=== PATIENT | female | born 1950 | race African-American/Black ===

== ENCOUNTER 2017-11-22 10:59 | Emergency (ER) | payer MEDICARE, OTHER ==
[~2017-11-22] VITALS: Ht 154.9 cm; Wt 80.3 kg
--- NOTE | 2017-11-22 13:02 | Diagnostic Imaging Report ---
History: Headaches Comparison studies: None Technique: Axial images were obtained from the skull base to the vertex. Coronal and sagittal reconstructions obtained from the axial data. Dose modulation, iterative reconstruction, and/or weight based adjustment of the mA/kV was utilized to reduce the radiation dose to as low as reasonably achievable. Findings: Scalp/skull: No abnormalities. No fractures, blastic or lytic lesions. Extra-axial spaces: No masses. No fluid collections. Brain sulci: Appropriate for age. Ventricles: Normal in size and configuration. No hydrocephalus. Parenchyma: No abnormal densities. No masses, hemorrhage, acute or chronic cortical vascular insults. Sellar/suprasellar region: Empty sella configuration Craniocervical junction: Patent foramen magnum. No Chiari one malformation. Atherosclerotic calcifications of the carotid siphons IMPRESSION: No acute abnormalities . Signed by: DR Pineda Collazo M.D. on 11/22/2017 12:59 PM
[2017-11-22] MEDS ORDERED: LIPITOR20 MG PO (13:20)
[2017-11-22] MEDS ORDERED: PLAVIX75 MG PO (13:20)
[2017-11-22] MEDS ORDERED: ATENOLOL50 MG PO (13:20)
[2017-11-22] MEDS ORDERED: HYZAAR 50-12.51 EACH (13:20)
[2017-11-22] MEDS ORDERED: ASPIR 8181 MG PO (13:20)
[2017-11-22] MEDS ORDERED: OMEPRAZOLE40 MG PO (13:20)
== END 2017-11-22 13:46 | disposition home or self-care (01) ==
LOC: FSED 10:59
DX: F43.9 Reaction to severe stress, unspecified (principal)
CPT/HCPCS: 70450; 99284

== ENCOUNTER 2018-08-17 15:14 | Emergency (ER) | payer MEDICARE, OTHER ==
[~2018-08-17] VITALS: Ht 154.9 cm; Wt 78.5 kg
[~2018-08-17 15:14] MED LIST: ASPIR 8181 MG PO; ATENOLOL50 MG PO; HYZAAR 50-12.51 EACH; LIPITOR20 MG PO; OMEPRAZOLE40 MG PO; PLAVIX75 MG PO
--- OUTSIDE RECORDS SUMMARY | 2018-08-17 15:18 | XMS REPORT ---
Author Author Jean Rider Organization [employer] Address Unknown Phone Unavailable Care Team Providers Care Transcript Evaluator Name Role Phone Jean Rider CP Unavailable Allergies No Known Allergies Problems Problem Type Condition Code Onset Dates Condition Status Problem GERD (gastroesophageal reflux disease) K21.9 Active Problem HTN (hypertension) I10 Active Problem BMI 33.0-33.9,adult Z68.33 Active Problem Obesity (BMI 30.0-34.9) E66.9 Active Problem BMI 34.0-34.9,adult Z68.34 Active Problem Prediabetes R73.09 Active Problem HLD (hyperlipidemia) E78.5 Active Problem Coronary artery disease involving [place] coronary artery of [place] heart, angina presence unspecified I25.10 Active Problem Microhematuria R31.2 Active Medications No Known Medications Results No Known Results Summary Purpose eClinicalWorks Submission
--- OUTSIDE RECORDS SUMMARY | 2018-08-17 15:18 | XMS REPORT | Summary of Care ---
Author Author [facility] Organization [facility] Address Unknown Phone Unavailable Encounter HQ Mariah(BONNY) [id number] Date(s): 01/05/15 - 01/05/15 [facility] [address] [place] [address]- Discharge Disposition: Home Attending Physician: Alisha Reddy DO Referring Physician: Alisha Reddy DO Vital Signs No data available for this section Problem List Condition Effective Dates Status Health Status Informant Abdominal Active pain(Confirmed) CAD (coronary artery Resolved disease)(Confirmed) Coronary artery Active disease(Confirmed) HTN - Active Hypertension(Confirm ed) HTN - Active Hypertension(Confirm ed) Hyperlipidemia(Confi Active rmed) Hyperlipidemia(Confi Resolved rmed) Nausea(Confirmed) Active Allergies, Adverse Reactions, Alerts Substance Reaction Severity Status Floxin Active Latex Active Macrodantin Active penicillins Active Shellfish Active Medications No data available for this section Results No data available for this section Immunizations No data available for this section Procedures No data available for this section Social History No data available for this section Assessment and Plan No data available for this section
--- OUTSIDE RECORDS SUMMARY | 2018-08-17 15:18 | XMS REPORT | Summary of Care ---
Author Author [facility] Organization [facility] Address Unknown Phone Unavailable Encounter HQ Micahr_zaid(FIN) [id number] Date(s): 03/26/17 - 03/26/17 [facility] [address] [place] [address]- [phone] Encounter Diagnosis Encounter for screening mammogram for malignant neoplasm of breast (Final) - 03/27/17 Discharge Disposition: Home or Self Care Attending Physician: Alisha Reddy DO Referring Physician: [...] Adverse Reactions, Alerts Substance Reaction Severity Status Shellfish Active penicillins Active Macrodantin Active Floxin Active Latex Active Medications No data available for this section Results No data available for this section Immunizations No data available for this section Procedures No data available for this section Social History No data available for this section Assessment and Plan No data available for this section
--- OUTSIDE RECORDS SUMMARY | 2018-08-17 15:18 | XMS REPORT | Summary of Care ---
Author Organization Unknown Address Unknown Phone Unavailable Encounter HQ Mariah(BONNY) [id number] Date(s): 09/30/13 - 10/01/13 [facility] [address] [place], [place] [id number] [place] [address] Discharge Diagnosis: Acute diverticulitis Discharge Disposition: Home Physician Attending: Tiana Liz DO Reason for Visit DR KRISS ABD PAIN Vital Signs Most recent to 1 2 oldest [Reference Range]: Height 154.94 cm (09/30/13 5:53 PM) Temperature Oral 98.1 DegF 98.5 DegF [96.4-99.1 DegF] (10/01/13 2:34 AM) (09/30/13 5:53 PM) Systolic Blood 164 mmHg Pressure [90-140 *HI* mmHg] (09/30/13 5:53 PM) Diastolic Blood 76 mmHg Pressure [60-90 (09/30/13 5:53 PM) mmHg] Respiratory Rate 66 BRMIN [14-20 BRMIN] *HI* (09/30/13 5:53 PM) Peripheral Pulse 18 bpm Rate [60-100 bpm] *LOW* (09/30/13 5:53 PM) Weight 80 kg (09/30/13 5:53 PM) Body Mass Index 33.32 m2 (09/30/13 5:53 PM) Problem List Condition Effective Dates Status Health Status Informant Abdominal Active pain(Confirmed) CAD (coronary artery Resolved disease)(Confirmed) Coronary artery Active disease(Confirmed) HTN - Active Hypertension(Confirm ed) HTN - Active Hypertension(Confirm ed) Hyperlipidemia(Confi Active rmed) Hyperlipidemia(Confi Resolved rmed) Nausea(Confirmed) Active Allergies, Adverse Reactions, Alerts Substance Reaction Severity Status Floxin Active Latex Active Macrodantin Active penicillins Active Shellfish Active Medications Benadryl 25 mg, 0.5 mL, Route: IVP, Drug form: INJ, ONCE, Dosing Weight 80, kg, Priority: STAT, Start date: 09/30/13 21:40:00, Stop date: 09/30/13 21:40:00 Notes: (Same as: Benadryl) Start Date: 09/30/13 Stop Date: 09/30/13 Status: Completed Cipro 500 mg, Route: PO, ONCE, Dosing Weight 80, kg, Priority: STAT, Start date: 10/01 2:04:00, Stop date: 10/01/13 2:04:00 Start Date: 10/01/13 Stop Date: 10/01/13 Status: Completed Flagyl 500 mg, Route: PO, ONCE, Dosing Weight 80, kg, Priority: STAT, Start date: 10/01 2:06:00, Stop date: 10/01/13 2:06:00 Start Date: 10/01/13 Stop Date: 10/01/13 Status: Completed Solu-MEDROL 125 mg, 2 mL, Route: IVP, Drug form: INJ, ONCE, Dosing Weight 80, kg, Priority: STAT, Start date: 09/30/13 21:39:00, Stop date: 09/30/13 21:39:00 Notes: (Same as:Solu-MEDROL, A-Methapred) Start Date: 09/30/13 Stop Date: 09/30/13 Status: Completed Results ELECTROLYTES Most recent to 1 oldest [Reference Range]: Sodium Lvl [135-145 136 mEq/L mEq/L] (09/30/13 6:20 PM) Potassium Lvl 5.8 mEq/L [3.5-5.1 mEq/L] *HI* (09/30/13 6:20 PM) Chloride Lvl [95-109 103 mEq/L mEq/L] (09/30/13 6:20 PM) CO2 [24-32 mEq/L] 25 mEq/L (09/30/13 6:20 PM) AGAP [10.0-20.0 13.8 mEq/L mEq/L] (09/30/13 6:20 PM) CHEM PANEL Most recent to 1 oldest [Reference Range]: Creatinine Lvl 0.8 mg/dL [0.5-1.4 mg/dL] (09/30/13 6:20 PM) eGFR 90 mL/min/1.73m2 1 *NA* (09/30/13 6:20 PM) BUN [7-22 mg/dL] 11 mg/dL (09/30/13 6:20 PM) B/C Ratio [6-25] 14 (09/30/13 6:20 PM) Glucose Lvl [70-99 78 mg/dL 2 mg/dL] (09/30/13 6:20 PM) Total Protein 8.2 g/dL [6.4-8.4 g/dL] (09/30/13 6:20 PM) Albumin Lvl [3.5-5.0 3.7 g/dL g/dL] (09/30/13 6:20 PM) Globulin [2.0-4.0 4.5 g/dL g/dL] *HI* (09/30/13 6:20 PM) A/G Ratio [0.7-1.6] 0.8 (09/30/13 6:20 PM) Calcium Lvl 9.4 mg/dL [8.5-10.5 mg/dL] (09/30/13 6:20 PM) ALT [0-65 unit/L] 20 unit/L (09/30/13 6:20 PM) AST [0-37 unit/L] 33 unit/L (09/30/13 6:20 PM) Alk Phos [39-136 88 unit/L unit/L] (09/30/13 6:20 PM) Bili Total [0.2-1.3 1.5 mg/dL mg/dL] *HI* (09/30/13 6:20 PM) 1Result Comment: The eGFR is calculated using the CKD-EPI formula. In most young, healthy individuals the eGFR will be >90 mL/min/1.73m2. The eGFR declines with age. An eGFR of 60-89 may be normal in some populations, particularly the elderly, for whom the CKD-EPI formula has not been extensively validated. Use of the eGFR is not recommended in the following populations: Individuals with unstable creatinine concentrations, including patients and those with serious co-morbid conditions. Patients with extremes in muscle mass or diet. The data above are obtained from the National Kidney Disease Education Program ( NKDEP) which additionally recommends that when the eGFR is used in patients with extremes of body mass index for purposes of drug dosing, the eGFR should be mul tiplied by the estimated BMI. 2Interpretive Data: Adult reference range values reflect the clinical guidelines of the [place] [employer]. URINE AND STOOL Most recent to 1 oldest [Reference Range]: UA Turbidity [Clear] Clear (09/30/13 9:30 PM) UA Color [Yellow] Yellow *NA* (09/30/13 9:30 PM) UA pH [5.0-8.0] 5.0 (09/30/13 9:30 PM) UA Spec Grav 1.016 [<=1.030] (09/30/13 9:30 PM) UA Glucose [Negative Negative mg/dL mg/dL] *NA* (09/30/13 9:30 PM) UA Blood [Negative] Small *ABN* (09/30/13 9:30 PM) UA Ketones [Negative Negative mg/dL mg/dL] *NA* (09/30/13 9:30 PM) UA Protein [Negative Negative mg/dL mg/dL] (09/30/13 9:30 PM) UA Urobilinogen <=1.0 mg/dL [0.1-1.0 mg/dL] *NA* (09/30/13 9:30 PM) UA Bili [Negative] Negative *NA* (09/30/13 9:30 PM) UA Leuk Est Negative [Negative] (09/30/13 9:30 PM) UA Nitrite Negative [Negative] (09/30/13 9:30 PM) UA WBC [0-5 /HPF] 3 /HPF (09/30/13 9:30 PM) UA RBC [0-2 /HPF] 4 /HPF *HI* (09/30/13 9:30 PM) UA Bacteria [None Occasional /HPF Seen /HPF] *NA* (09/30/13 9:30 PM) UA Sq Epi [Few /LPF] Occasional /LPF *NA* (09/30/13 9:30 PM) UA Hyal Cast [0-2 28 /LPF /LPF] *HI* (09/30/13 9:30 PM) UA Mucus [None Seen Few /LPF /LPF] *NA* (09/30/13 9:30 PM) HEMATOLOGY Most recent to 1 oldest [Reference Range]: WBC [3.7-10.4 K/CMM] 14.6 K/CMM *HI* (09/30/13 6:20 PM) RBC [4.20-5.40 4.62 M/CMM M/CMM] (09/30/13 6:20 PM) Hgb [12.0-16.0 g/dL] 12.2 g/dL (09/30/13 6:20 PM) Hct [36.0-48.0 %] 36.6 % (09/30/13 6:20 PM) MCV [81.0-99.0 fL] 79.2 fL *LOW* (09/30/13 6:20 PM) MCH [27.0-31.0 pg] 26.4 pg *LOW* (09/30/13 6:20 PM) MCHC [32.0-36.0 33.3 g/dL g/dL] (09/30/13 6:20 PM) RDW [11.5-14.5 %] 14.6 % *HI* (09/30/13 6:20 PM) Platelet [133-450 244 K/CMM K/CMM] (09/30/13 6:20 PM) MPV [7.4-10.4 fL] 8.7 fL (09/30/13 6:20 PM) Segs [45.0-75.0 %] 87.4 % *HI* (09/30/13 6:20 PM) Lymphocytes 9.9 % [20.0-40.0 %] *LOW* (09/30/13 6:20 PM) Monocytes [2.0-12.0 1.8 % %] *LOW* (09/30/13 6:20 PM) Eosinophils [0.0-4.0 0.5 % %] (09/30/13 6:20 PM) Basophils [0.0-1.0 0.4 % %] (09/30/13 6:20 PM) Segs-Bands # 12.7 K/CMM [1.5-8.1 K/CMM] *HI* (09/30/13 6:20 PM) Lymphocytes # 1.4 K/CMM [1.0-5.5 K/CMM] (09/30/13 6:20 PM) Monocytes # [0.0-0.8 0.3 K/CMM K/CMM] (09/30/13 6:20 PM) Eosinophils # 0.1 K/CMM [0.0-0.5 K/CMM] (09/30/13 6:20 PM) Basophils # [0.0-0.2 0.1 K/CMM K/CMM] (09/30/13 6:20 PM) Medications Administered During Your Visit No data available for this section Immunizations No data available for this section
--- OUTSIDE RECORDS SUMMARY | 2018-08-17 15:18 | XMS REPORT ---
Author Author Priti Rea [facility] eClinicalWorks Address Unknown Phone Unavailable Care Team Providers Care Mopper Name Role Phone Priti Rea Unavailable Allergies, Adverse Reactions, Alerts Substance Reaction Event Type Latex Gloves Info Not Available Drug Allergy Codeine Sulfate Info Not Available Drug Allergy shrimp Info Not Available Non Drug Allergy Encounters Encounter Location Date Unknown [facility] October 01, 2013 intense stomach pain [facility] September 30, 2013 Follow-Up [facility] October 05, 2013 3 MONTH FU [facility] Oct 30, 2013 follow up on labs [facility] Feb 03, 2013 Unknown [facility] Apr 28, 2013 6 month f/u [facility] July 31, 2013 NV- FLU SHOT [facility] Dec 10, 2013 SORE THROAT [facility] Mar 21, 2015 Unknown [facility] Feb 28, 2015 Unknown [facility] Nov 17, 2013 Unknown [facility] Nov 23, 2013 2 week follow up [facility] Feb 03, 2015 Test results [facility] Feb 04, 2015 WWE/FBW [facility] Jan 20, 2015 Results [facility] Jan 21, 2015 Back pain. [facility] May 18, 2015 FOLLOW UP ON ABNORMAL RESULTS [facility] Feb 16, 2014 Refill [facility] Nov 08, 2014 WWE fbw [facility] Jan 29, 2014 Unknown [facility] Feb 14, 2014 follow up [facility] Feb 25, 2015 Problems Problem Type Condition ICD-9 Code Onset Dates Condition Status Assessment Prediabetes R73.09 Active Problem Prediabetes R73.09 Active Assessment 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 Active Problem Postmenopausal Z78.0 Active Problem Leukocytosis D72.829 Active Problem Coronary artery disease involving [place] coronary artery of [place] heart, angina presence unspecified I25.10 Active Problem HLD (hyperlipidemia) E78.5 Active Problem GERD (gastroesophageal reflux disease) K21.9 Active Problem Microhematuria R31.2 Active Problem HTN (hypertension) I10 Active Assessment BMI 33.0-33.9,adult Z68.33 Active Assessment Shoulder pain M25.519 Active Assessment HTN (hypertension) I10 Active Assessment Obesity E66.9 Active Assessment HLD (hyperlipidemia) E78.5 Active Medications Medication Code System Code Instructions Start Date End Date [facility] D[facility] [address] 81 MG Orally Once a day Active 1 tablet Atenolol [facility] [address]-50 50 mg Orally Once a day Active 1 tablet Aciphex [facility] [address]-33 20 mg Orally Once a day Active 1 tablet Hyzaar [facility] [address]-18 50-12.5 MG Orally Once a day Active 1 tablet Atorvastatin Calcium [facility] [address]-16 40 mg Orally Once a day July 31, 2013 Active 1 tablet Plavix [facility] [address]-87 75 mg Orally Once a day Active 1 tablet Lidoderm [facility] [address]-15 5 % Externally Once a day May 18, 2015 July 17, 2015 Active 1 patch to intact skin remove after 12 hours Social History Social History Element Qualifiers Date Reported Fall Risk: . none in the past year May 18, 2015 Flu Vaccine: . 2014May 18, 2015 Last Colonoscopy: . 2012, 1 polyp May 18, 2015 Ethnicity . Status , Is afghan your primary language? Yes May 18, 2015 Depression Screening: . 07/2013May 18, 2015 children . 2 May 18, 2015 Tobacco Use: . Are you a: never smoker May 18, 2015 Use of recreational / street drugs? . Answer: No May 18, 2015 Marital Status: . Prabhakar Jerel May 18, 2015 Do you drink alcohol? . Status: No May 18, 2015 Occupation: . [employer] May 18, 2015 Vital Signs Date/Time: May 18, 2015 Weight 178 lbs Height 61 in Cardiac Monitoring Heart Rate 68 /min Blood Pressure Diastolic 76 mm Hg Blood Pressure Systolic 136 mm Hg Results Spine cervical 4 views- Xray Summary Purpose eClinicalWorks Submission
--- OUTSIDE RECORDS SUMMARY | 2018-08-17 15:18 | XMS REPORT | Summary of Care ---
Author Author [facility] Organization [facility] Address Unknown Phone Unavailable Encounter HQ Sima_zaid(FIN) [id number] Date(s): 03/26/17 - 03/26/17 [facility] [address] [place] [address]- Encounter Diagnosis Encounter for screening mammogram for malignant neoplasm of breast (Final) - Discharge Disposition: Home or Self Care Attending [...]
--- OUTSIDE RECORDS SUMMARY | 2018-08-17 15:18 | XMS REPORT | Summary of Care ---
Author Author [facility] Address Unknown Phone Unavailable Encounter HQ Encntr_zaid(FIN) [id number] Date(s): 04/18/15 - 05/17/15 [facility] Discharge Disposition: Home Attending Physician: Alisha Reddy DO Vital Signs No [...]
--- OUTSIDE RECORDS SUMMARY | 2018-08-17 15:18 | XMS REPORT ---
Author Author Jean Rider Organization [employer] Address Unknown Phone Unavailable Care Team Providers Care Online Merchant Name Role Phone Jean Rider CP Unavailable Allergies No Known Allergies Problems Problem Type Condition Code Onset Dates Condition Status Assessment Stress at home F43.9 Active Problem Coronary artery disease involving [place] coronary artery of [place] heart, angina presence unspecified I25.10 Active Problem Microhematuria R31.2 Active Problem Stress at home F43.9 Active Problem GERD (gastroesophageal reflux disease) K21.9 Active Problem HTN (hypertension) I10 Active Problem Prediabetes R73.09 Active Problem HLD (hyperlipidemia) E78.5 Active Medications Medication Code System Code Instructions Start Date End Date Status Dosage HydrOXYzine HCl [facility] 21012217989 25 MG Orally every 8 hrs Active 1 tablet as needed Results No Known Results Summary Purpose eClinicalWorks Submission
--- OUTSIDE RECORDS SUMMARY | 2018-08-17 15:18 | XMS REPORT ---
Author Author Jean Rider Organization [employer] Address Unknown Phone Unavailable Care Team Providers Care Director Student Union Name Role Phone Jean Rider CP Unavailable Allergies, Adverse Reactions, Alerts Substance Reaction Event Type Latex Gloves Info Not Available Drug Allergy Codeine Sulfate Info Not Available Drug Allergy shrimp Info Not Available Non Drug Allergy Problems Problem Type Condition Code Onset Dates Condition Status Assessment Stress at home F43.9 Active Assessment Prediabetes R73.09 Active Assessment HTN (hypertension) I10 Active Problem Coronary artery disease involving [place] coronary artery of [place] heart, angina presence unspecified I25.10 Active Problem Microhematuria R31.2 Active Problem Stress at home F43.9 Active Problem GERD (gastroesophageal reflux disease) K21.9 Active Problem HTN (hypertension) I10 Active Problem Prediabetes R73.09 Active Problem HLD (hyperlipidemia) E78.5 Active Assessment Fatigue, unspecified type R53.83 Active Assessment Obesity (BMI 30.0-34.9) E66.9 Active Assessment BMI 33.0-33.9,adult Z68.33 Active Assessment Coronary artery disease involving [place] coronary artery of [place] heart, angina presence unspecified I25.10 Active Assessment Microhematuria R31.2 Active Medications Medication Code System Code Instructions Start Date End Date Status Dosage HydrOXYzine HCl [facility] 29842992183 25 MG Orally every 8 hrs Active 1 tablet as needed Aspirin [facility] 33302903692 81 MG Orally Once a day Active 1 tablet Omeprazole ND 81045031837 40 MG Orally Once a day Active 1 capsule Atorvastatin Calcium ND 55409593643 20 MG Orally Once a day Active 1 tablet Atorvastatin Calcium [facility] 80329405957 40 mg Orally Once a day July 31, 2013 Active 1 tablet Plavix ND 01169749211 75 mg Orally Once a day Active 1 tablet Atenolol ND 74509820024 50 mg Orally Once a day Active 1 tablet Hyzaar [facility] 16994647606 50-12.5 MG Orally Once a day Active 1 tablet Vital Signs Date/Time: Nov 26, 2017 BMI 33.63 Index Weight 178 lbs Height 61 in Cardiac Monitoring Heart Rate 73 /min Blood Pressure Diastolic 60 mm Hg Blood Pressure Systolic 100 mm Hg Results No Known Results Summary Purpose eClinicalWorks Submission
--- OUTSIDE RECORDS SUMMARY | 2018-08-17 15:18 | XMS REPORT | Continuity of Care Document ---
Author Author [facility] Interface Address Unknown Phone Unavailable Problems Problem Status Onset Date Classification Date Reported Comments Source ROUTINE Active 05/01/2018 [facility] DX: R10.30/R11.0/R14.3/Z87.891/I10/E66.9 Active 02/25/2018 [facility] UNK Active 11/09/2016 [facility] SCREENING Active 01/23/2016 [facility] M47.9 (NOT MARGARET,PT HAS A STENT,WAS IN Active 02/09/2015 [facility] SCREENING MAMMO Active 12/30/2014 [facility] Discharge Diagnosis: Acute diverticulitis 10/01/2013 10/04/[address] [facility] [address] MONTERROSO, ABD PAIN Active 09/30/2013 [facility] Encounter for screening mammogram for malignant neoplasm of breast [facility] Abdominal pain Active Problem 05/09/2018 [facility] [place] CAD (<span ID="[id number]">Confirmed</span>) Resolved Problem 05/09/2018 [facility] [place] Coronary artery disease Active Problem 05/09/2018 [facility] [place] HTN - Hypertension Active Problem 05/09/2018 [facility] [place] Hyperlipidemia Active Problem 05/09/2018 [facility] [place] Nausea Active Problem 05/09/2018 [facility] [place] Final: Encounter for screening mammogram for malignant neoplasm of breast 02/24/2016 [facility] Stress at home Active Problem 07/29/2018 [facility] Coronary artery disease involving red cliff coronary artery of red cliff heart, angina presence unspecified Active Diagnosis 07/29/2018 [facility] Microhematuria Active Problem 07/29/2018 [facility] GERD Active Problem 07/29/2018 [facility] HTN Active Diagnosis 07/29/2018 [facility] Prediabetes Active Problem 07/29/2018 [facility] HLD Active Diagnosis 07/29/2018 [facility] BMI 33.0-33.9,adult Active Diagnosis 12/06/2017 [facility] Obesity Active Diagnosis 12/06/2017 [facility] BMI 34.0-34.9,adult Active Problem 08/08/2017 [facility] Fatigue, unspecified type Active Diagnosis 12/06/2017 [facility] Routine general medical examination at a health care facility Active Diagnosis 02/22/2017 [facility] Asymptomatic menopausal state Active Diagnosis 02/22/2017 [facility] Encntr for general adult medical exam w/o abnormal findings Active Diagnosis 02/01/2018 [facility] Postmenopausal Active Problem 01/27/2016 [facility] Leukocytosis Active Problem 01/27/2016 [facility] Lumbar disc herniation with radiculopathy Active Diagnosis 05/21/2015 [facility] Shoulder pain Active Diagnosis 05/21/2015 [facility] Needs flu shot Active Diagnosis 01/27/2016 [facility] Special screening for malignant neoplasms, colon Active Diagnosis 01/27/2016 [facility] Abdominal pain, unspecified location Active Diagnosis 03/28/2016 [facility] Acute cystitis with hematuria Active Diagnosis 03/28/2016 [facility] ENCNTR SCREEN MAMMOGRAM FOR MALIGNANT NE Active [facility] SPONDYLOSIS, UNSPECIFIED Active [facility] LUMBAR Active [facility] LUMBAR DISC HERNIATION WITH RADICULOPATH Active [facility] ANGINA PECTORIS, UNSPECIFIED Active [facility] LBP Active [facility] LBP Active [facility] LOWER ABDOMINAL PAIN, UNSPECIFIED Active [facility] NAUSEA Active [facility] FLATULENCE Active [facility] Medications Medication Details Route Status Patient Instructions Ordering Provider Order Date Source Cipro 1 tablet Orally Active 250 MG Orally twice a day (bid) Teres[place] 03/26/2016 [facility] Ambien 1 tablet at bedtime as needed Orally No Longer Active 10 mg Orally Once a day Pawel Gagnon 06/27/2015 [facility] Lidoderm 1 patch to intact skin remove after 12 hours Externally Active 5 % Externally Once a day [place] 05/18/2015 [facility] Flagyl 500 mg, Route: PO, ONCE, Dosing Weight 80, kg, Priority: STAT, Start date: 10/01/13 2:06:00, Stop date: 10/01/13 2:06:00 Inactive 10/01/2013 [facility] Cipro 500 mg, Route: PO, ONCE, Dosing Weight 80, kg, Priority: STAT, Start date: 10/01/13 2:04:00, Stop date: 10/01/13 2:04:00 Inactive 10/01/2013 [facility] Benadryl 25 mg, 0.5 mL, Route: IVP, Drug form: INJ, ONCE, Dosing Weight 80, kg, Priority: STAT, Start date: 09/30/13 21:40:00, Stop date: 09/30/13 21:40:00Notes: (Same as: Benadryl) Inactive 10/01/2013 [facility] Solu-Medrol 125 mg, 2 mL, Route: IVP, Drug form: INJ, ONCE, Dosing Weight 80, kg, Priority: STAT, Start date: 09/30/13 21:39:00, Stop date: 09/30/13 21:39:00Notes: (Same as:Solu-MEDROL, A-Methapred) Inactive 10/01/2013 [facility] Atorvastatin Calcium 1 tablet Orally Active 40 mg Orally Once a day [place] 07/31/2013 [facility] Atorvastatin Calcium 1 tablet Orally Active 40 MG Orally Once a day [place] 07/31/2013 [facility] Atorvastatin Calcium 1 tablet Orally Active 40 mg Orally Once a day [place] 07/31/2013 [facility] HydrOXYzine HCl 1 tablet as needed Orally Active 25 MG Orally every 8 hrs [facility] Plavix 1 tablet Orally Active 75 mg Orally Once a day [facility] Aspirin 1 tablet Orally Active 81 MG Orally Once a day [facility] Omeprazole 1 capsule Orally Active 40 mg Orally Once a day [facility] Atorvastatin Calcium 1 tablet Orally Active 20 mg Orally Once a day [facility] Atenolol 1 tablet Orally Active 50 mg Orally Once a day [facility] Hyzaar 1 tablet Orally Active 50-12.5 MG Orally Once a day Ranjit [facility] Aspirin 1 tablet Orally Active 81 MG Orally Once a day [facility] Atenolol 1 tablet Orally Active 50 MG Orally Once a day [facility] Aciphex 1 tablet Orally No Longer Active 20 mg Orally Once a day [facility]awel Gagnon [facility] Hyzaar 1 tablet Orally Active 50-12.5 MG Orally Once a day [facility] Plavix 1 tablet Orally Active 75 MG Orally Once a day [facility] Aspirin (Aspir 81) 81 Mg Tablet. Daily Active [facility] Atenolol 50 Mg Tablet Daily Active [facility] Atorvastatin Calcium (Lipitor) 20 Mg Tablet Daily Active [facility] Clopidogrel Bisulfate (Plavix) 75 Mg Tablet Daily Active [facility] Losartan/Hydrochlorothiazide (Hyzaar 50-12.5 Tablet) 1 Each Tablet Active [facility] Omeprazole 40 Mg Capsule. Daily Active [facility] Allergies, Adverse Reactions, Alerts Substance Category Reaction Severity Reaction type Status Date Reported Comments Source clavulanic acid Unknown Allergy to Substance Active 11/22/2017 [facility] Latex Gloves Adverse Reaction Info Not Available Adverse Reaction Active 01/31/2018 [facility] Codeine Sulfate Adverse Reaction Info Not Available Adverse Reaction Active 01/31/2018 [facility] shrimp Adverse Reaction Info Not Available Adverse Reaction Active 01/31/2018 [facility] Shellfish Assertion Drug allergy Active [place] penicillins Assertion Drug allergy Active [place] Macrodantin Assertion Drug allergy Active [place] Floxin Assertion Drug allergy Active [facility] Latex Assertion Drug allergy Active [facility] Immunizations Immunization Date Given Site Status Last Updated Comments Source FLUZONE HD 65 & [place] [id number] 01/23/2016 completed [facility] Results Order Name Results Value Reference Range Date Interpretation Comments Source Breast Mammo Scrn LANCE w cilve incl CAD MA Breast Mammo Scrn LANCE w clive incl CAD MA BILATERAL DIGITAL SCREENING MAMMOGRAM 3D/2D WITH CAD: 05/06/2018 CLINICAL: /Routine. Current study was evaluated with a Computer Aided Detection (CAD) system. COMPARISON:Comparison is made to exams dated: 03/26/2017 mammogram, 02/21/2016 mammogram, 01/05/2015 mammogram, 12/23/2013 mammogram, 12/23/2012 mammogram, and 08/04/2011 mammogram - [facility]. TECHNIQUE: Digital Breast Tomosynthesis was performed and utilized for Interpretation. Snap [employer]itness[employer] Version 1.3 was utilized for computer aided detection. FINDINGS: There are scattered fibroglandular densities in both breasts. Benign appearing densities are noted in both breasts. There is a benign mass and an intramammary node in the left breast. There also are benign vascular calcifications and calcifications in both breasts. No significant masses, calcifications, or other findings are seen in either breast. There has been no significant interval change. IMPRESSION: BENIGN RECOMMENDATION:There is no mammographic evidence of malignancy. A 1 year screening mammogram is recommended.(05/07/2019) This exam was interpreted at [id number] for [facility]. Rita masterson/penrad:05/06/2018 11:26:03 Fell Cutter(s): Nasima Abraham [facility] letter sent: BI-RADS 1/2 Mammogram BI-RADS: 2 Benign 05/06/2018 - - Read by: Rita Reza MD Dictated Date/time: 05/06/18 11:26 Electronically Signed by: Rita Reza MD 05/06/18 11:26 FINAL REPORT [facility] Abdomen/Pelvis w/wo IV contrast CT Abdomen/Pelvis w/wo IV contrast CT EXAM: CT ABDOMEN PELVIS WITH AND WITHOUT CONTRAST. CLINICAL INDICATION: 67 years old Female with lower abdominal pain for one week, history of diverticulitis. TECHNIQUE: GI CONTRAST: 900 cc of standard 5% Omnipaque-300 contrast mixture. Axial pre-contrast images were obtained from the lower chest to the symphysis pubis. IV CONTRAST: 100 cc of Omnipaque-300 Axial post-contrast images were obtained from the lower chest to the symphysis pubis. Coronal and sagittal reconstruction images were performed. CT imaging performed at this location utilizes radiation dose optimization techniques which include one or more of the following: -Automated exposure control -Adjustment of the mA and/or kV according to patient size -Use of iterative reconstruction technique CT Radiation Dose DLP 1445 mGy-cm COMPARISON: CT abdomen/pelvis 09/30/2013 FINDINGS: LOWER CHEST: The visualized lung bases are clear. Normal size of the heart is noted. Coronary artery calcifications. SOLID ORGANS: No focal hepatic lesion or intrahepatic biliary ductal dilatation is seen. Prior cholecystectomy. The spleen, pancreas, and adrenal glands are normal in appearance. Both kidneys demonstrate normal corticomedullary phase of enhancement. No renal/ureteral calculus, hydronephrosis, or mass is apparent. Nonenhancing 10 mm hyperdense right renal exophytic focus likely representing a hemorrhagic/proteinaceous cyst. 3.2 cm left upper pole cyst. 1.6 cm left lower pole cyst. A few additional subcentimeter bilateral renal hypodensities are noted which are too small to characterize, though statistically likely represent cysts. BOWEL: Small hiatal hernia. The small bowel is normal in caliber without wall thickening. A normal appendix is identified. Colonic diverticulosis. Short segment of mild wall thickening with adjacent fat stranding noted in the sigmoid colon consistent with acute diverticulitis. No evidence of adjacent abscess. PERITONEUM: No free intraperitoneal fluid or air. RETROPERITONEUM: Normal caliber of the abdominal aorta is noted. No lymphadenopathy is seen. PELVIS: The visualized urinary bladder wall is normal thickness. Uterus is absent. MUSCULOSKELETAL: No acute osseous abnormality is seen. No destructive lytic or blastic osseous lesion is noted. Degenerative changes noted in the spine, most prominently at L4-L5. IMPRESSION: 1. Findings consistent with acute sigmoid diverticulitis. 2. Small hiatal hernia. 3. Bilateral renal cysts. Additional subcentimeter bilateral renal hypodensities are noted which are too small to characterize, though statistically likely also represent cysts. SL: [id number] 02/25/2018 - - Read by: Aubrey Trevino MD Dictated Date/time: 02/26/18 15:19 Electronically Signed by: Aubrey Trevino MD 02/26/18 15:31 FINAL REPORT [facility] Breast Mammo Scrn LANCE incl CAD CT Breast Mammo Scrn LANCE incl CAD MA BILATERAL DIGITAL SCREENING MAMMOGRAM WITH CAD: 03/26/2017 CLINICAL: /Routine. Current study was evaluated with a Computer Aided Detection (CAD) system. COMPARISON:Comparison is made to exams dated: 02/21/2016 mammogram, 01/05/2015 mammogram, 12/23/2013 mammogram, 12/23/2012 mammogram, 08/04/2011 mammogram, and 07/22/2010 mammogram - [facility]. TECHNIQUE: Mammographic views were obtained using digital acquisition. Snap [employer]itness[employer] Version 1.3 was utilized for computer aided detection. FINDINGS: There are scattered fibroglandular densities in both breasts. There is a benign density in the right breast. There also is a benign intramammary node in the left breast. Additionally, there are benign vascular calcifications and calcifications in both breasts. No significant masses, calcifications, or other findings are seen in either breast. There has been no significant interval change. IMPRESSION: BENIGN RECOMMENDATION:There is no mammographic evidence of malignancy. A 1 year screening mammogram is recommended.(03/27/2018) This exam was interpreted at [id number] for [facility]. Rita masterson/penrad:03/27/2017 07:58:05 Fell Cutter(s): Cari Hebert, [facility] letter sent: BI-RADS 1/2 Mammogram BI-RADS: 2 Benign 03/26/2017 - - Read by: Rita Reza MD Dictated Date/time: 03/27/17 07:58 Electronically Signed by: Rita Reza MD 03/27/17 07:58 FINAL REPORT [facility] Digital Mammo Screening [facility] Digital Mammo Screening [facility] - DIGITAL MAMMO SCREENING [facility] [place] BILATERAL DIGITAL SCREENING MAMMOGRAM WITH CAD: 02/21/2016 CLINICAL: Other Screening Mammogram. Current study was evaluated with a Computer Aided Detection (CAD) system. Comparison is made to exams dated: 01/05/2015 mammogram, 12/23/2013 mammogram, 12/23/2012 mammogram, 08/04/2011 mammogram, 07/22/2010 mammogram and 07/20/2009 mammogram - [facility]. There are scattered fibroglandular densities in both breasts. There are benign vascular calcifications and calcifications in both breasts. There also is a benign density in the right breast. Additionally there is a benign intramammary node in the left breast. No significant masses, calcifications, or other findings are seen in either breast. There has been no significant interval change. IMPRESSION: BENIGN There is no mammographic evidence of malignancy. A 1 year screening mammogram is recommended. Rita masterson/manuela:02/21/2016 14:13:40 Fell Cutter: Moon Pineda, [facility] This exam was dictated and interpreted by [id number] for [facility]. letter sent: Normal exam Mammogram BI-RADS: 2 Benign 02/21/2016 - - Read by: Rita Reza MD Dictated Date/time: 02/21/16 14:13 Electronically Signed by: Rita Reza MD 02/21/16 14:13 FINAL REPORT [facility] Spine lumbar wo contrast MRI Spine lumbar wo contrast MRI MRI LUMBAR SPINE WITHOUT CONTRAST: CLINICAL HISTORY: Lower lumbar pain extending into both legs. Previous disc herniation. Spondylosis. TECHNIQUE AND FINDINGS: A multiplanar MRI of the lumbar spine was performed without intravenous gadolinium injection on a 1.5 tomas magnet. Multiple imaging sequences were obtained including sagittal T1, sagittal T2 FSE, sagittal T2 FSE fat-suppressed, axial T1, and axial T2 FSE. COMPARISON: No prior similar examinations are available for comparison. Five lumbar type vertebral bodies are assumed for purposes of this dictation with the conus medullaris termination at T12-L1. Loss of normal lordosis may be secondary to positioning or muscle spasm. Mild spondylosis is seen throughout the majority of the lumbar spine with moderate to severe spondylosis at L4-L5 manifest by a narrowed, desiccated, and bulging intervertebral disc with endplate degenerative change and marginal osteophyte formation. Mild to moderate facet arthrosis and ligamentum flavum appear to greatest in the lower lumbar spine. No acute fracture, dislocation, or focal osseous lesion is appreciated. An S1 hemangioma is seen on the right. A couple of small fluid signal intensity left renal lesions are seen suspicious for cysts measuring up to 2.5 cm at maximum. The incompletely visualized liver appears hypointense on T2 images relative to the spleen suggesting possible hemochromatosis. T12 - L1: No significant disc protrusion, spinal canal narrowing or neural foraminal narrowing is appreciated. L1 - L2: No significant disc protrusion, spinal canal narrowing or neural foraminal narrowing is appreciated. L2 - L3: Minimal diffuse disc bulge causing minimal anterior thecal sac compression. No significant spinal canal narrowing or neural foraminal narrowing. L3 - L4: Mild diffuse disc bulge causing mild anterior thecal sac compression without significant central spinal canal narrowing. Minimal right neural foraminal narrowing. No significant left neural foraminal narrowing. L4 - L5: Mild to moderate diffuse disc bulge coupled with moderate facet arthrosis and ligamentum flavum hypertrophy. Mild spinal canal narrowing. Moderate bilateral neural foraminal narrowing L5 - S1: Mild diffuse disc bulge with mild broad-based right lateral asymmetry and focal asymmetry the right paracentral region. Partial effacement of the anterior aspect of the thecal sac is seen on the right likely with mild mass effect upon the right S1 nerve root. Severe right neural foraminal narrowing with mass effect upon the exiting right L5 nerve root. Moderate left neural foraminal narrowing. IMPRESSION: 1. Predominately mild lumbar spondylosis except for L4-L5 where moderate to severe spondylosis is present. Mild to moderate facet arthrosis and ligamentum flavum hypertrophy greatest in the lower lumbar spine. 2. Mild to moderate diffuse disc bulge at L4-L5 coupled with moderate facet arthrosis and ligament flavum hypertrophy causing mild spinal canal narrowing associated with moderate bilateral neural foraminal narrowing. 3. Mild diffuse disc bulge with broad-based right lateral asymmetry of focal asymmetry in the right paracentral region. Partial effacement of the anterior aspect of the thecal sac is seen on the right likely with mild mass effect upon the right S1 nerve root. Severe right neural foraminal narrowing is present with mass effect upon the exiting right L5 nerve root. Moderate left neural foraminal narrowing. SL:17 02/17/2015 - - Read by: Alonso Vega MD Dictated Date/time: 02/18/15 07:41 Electronically Signed by: Alonso Vega MD 02/18/15 08:20 FINAL REPORT [facility] Digital Mammo Screening [facility] Digital Mammo Screening [facility] DIGITAL MAMMO SCREENING LANCE CT BILATERAL DIGITAL SCREENING MAMMOGRAM WITH CAD: 01/05/2015 CLINICAL: Other Screening Mammogram. Current study was evaluated with a Computer Aided Detection (CAD) system. Comparison is made to exams dated: 12/23/2013 mammogram, 12/23/2012 mammogram, 08/04/2011 mammogram, 07/22/2010 mammogram, 07/20/2009 mammogram and 06/25/2009 mammogram - [facility]. There are scattered fibroglandular densities in both breasts. There are benign vascular calcifications and calcifications in both breasts. There also is a benign density in the right breast. Additionally there is a benign intramammary node in the left breast. No significant masses, calcifications, or other findings are seen in either breast. There has been no significant interval change. IMPRESSION: BENIGN There is no mammographic evidence of malignancy. A 1 year screening mammogram is recommended. Rita montoyat/penrad:01/06/2015 08:48:58 Fell Cutter: Moon Pineda, [facility] This exam was dictated and interpreted by [id number] for [facility]. letter sent: Normal exam Mammogram BI-RADS: 2 Benign 01/05/2015 - - Read by: Rita Reza MD Dictated Date/time: 01/06/15 08:48 Electronically Signed by: Rita Reza MD 01/06/15 08:48 FINAL REPORT [facility] Digital Mammo Screening [facility] Digital Mammo Screening [facility] - DIGITAL MAMMO SCREENING [place] BILATERAL DIGITAL SCREENING MAMMOGRAM WITH CAD: 12/23/2013 CLINICAL: Routine. Current study was evaluated with a Computer Aided Detection (CAD) system. Comparison is made to exams dated: 12/23/2012 mammogram, 08/04/2011 mammogram, 07/22/2010 mammogram, 07/20/2009 mammogram and 06/25/2009 mammogram - [facility]. There are scattered fibroglandular densities in both breasts. There are benign vascular calcifications and calcifications in both breasts. There also is a benign density in the right breast. Additionally there is a benign intramammary node in the left breast. No significant masses, calcifications, or other findings are seen in either breast. There has been no significant interval change. IMPRESSION: BENIGN There is no mammographic evidence of malignancy. A screening mammogram in one year is recommended. Rita masterson/penrad:12/24/2013 08:09:26 Fell Cutter: Fiordaliza Neville, [facility] This exam was dictated and interpreted by [id number] for [facility]. letter sent: Normal exam Mammogram BI-RADS: 2 Benign 12/23/2013 - - Read by: Rita Reza MD Dictated Date/time: 12/24/13 08:09 Electronically Signed by: Rita Reza MD 12/24/13 08:09 FINAL REPORT [facility] URINE AND STOOL UA Mucus Few /LPF None Seen /LPF 10/01/2013 [facility] URINE AND STOOL UA Hyal Cast 28 /LPF 0 - 2 10/01/2013 [facility] URINE AND STOOL UA Urobilinogen <=1.0 mg/dL 0.1 - 1.0 10/01/2013 [facility] URINE AND STOOL UA Sq Epi Occasional /LPF Few /LPF 10/01/2013 [facility] URINE AND STOOL UA WBC 3 /HPF 0 - 5 10/01/2013 [facility] URINE AND STOOL UA RBC 4 /HPF 0 - 2 10/01/2013 [facility] URINE AND STOOL UA Bacteria Occasional /HPF None Seen /HPF 10/01/2013 [facility] URINE AND STOOL UA Leuk Est Negative (09/30/13 9:30 PM) Negative 10/01/2013 [facility] URINE AND STOOL UA pH 5.0 5.0 - 8.0 10/01/2013 [facility] URINE AND STOOL UA Protein Negative mg/dL Negative mg/dL 10/01/2013 [facility] URINE AND STOOL UA Nitrite Negative (09/30/13 9:30 PM) Negative 10/01/2013 [facility] URINE AND STOOL UA Blood Small *ABN* (09/30/13 9:30 PM) Negative 10/01/2013 [facility] URINE AND STOOL UA Glucose Negative mg/dL Negative mg/dL 10/01/2013 [facility] URINE AND STOOL UA Ketones Negative mg/dL Negative mg/dL 10/01/2013 [facility] URINE AND STOOL UA Bili Negative *NA* (09/30/13 9:30 PM) Negative 10/01/2013 [facility] URINE AND STOOL UA Turbidity Clear (09/30/13 9:30 PM) Clear 10/01/2013 [facility] URINE AND STOOL UA Spec Grav 1.016 <=1.030 10/01/2013 [facility] URINE AND STOOL UA Color Yellow *NA* (09/30/13 9:30 PM) Yellow 10/01/2013 [facility] CHEM PANEL eGFR 90 mL/min/1.73m2 09/30/2013 1Result Comment: The eGFR is calculated using [...] from the National Kidney Disease Education Program (NKDEP) which additionally recommends that when the eGFR is used in patients with extremes of body mass index for purposes of drug dosing, the eGFR should be multiplied by the estimated BMI. [facility] CHEM PANEL A/G Ratio 0.8 0.7 - 1.6 09/30/2013 [facility] CHEM PANEL B/C Ratio 14 6 - 25 09/30/2013 [facility] CHEM PANEL Globulin 4.5 g/dL 2.0 - 4.0 09/30/2013 [facility] CHEM PANEL AGAP 13.8 meq/L 10.0 - 20.0 09/30/2013 [facility] CHEM PANEL Total Protein 8.2 g/dL 6.4 - 8.4 09/30/2013 [facility] CHEM PANEL Albumin Lvl 3.7 g/dL 3.5 - 5.0 09/30/2013 [facility] CHEM PANEL Calcium Lvl 9.4 mg/dL 8.5 - 10.5 09/30/2013 [facility] CHEM PANEL CO2 25 meq/L 24 - 32 09/30/2013 [facility] CHEM PANEL Chloride Lvl 103 meq/L 95 - 109 09/30/2013 [facility] CHEM PANEL Bili Total 1.5 mg/dL 0.2 - 1.3 09/30/2013 [facility] CHEM PANEL Alk Phos 88 unit/L 39 - 136 09/30/2013 [facility] CHEM PANEL AST 33 unit/L 0 - 37 09/30/2013 [facility] CHEM PANEL ALT 20 unit/L 0 - 65 09/30/2013 [facility] CHEM PANEL Potassium Lvl 5.8 meq/L 3.5 - 5.1 09/30/2013 [facility] CHEM PANEL Sodium Lvl 136 meq/L 135 - 145 09/30/2013 [facility] CHEM PANEL BUN 11 mg/dL 7 - 22 09/30/2013 [facility] CHEM PANEL Creatinine Lvl 0.8 mg/dL 0.5 - 1.4 09/30/2013 [facility] CHEM PANEL Glucose Lvl 78 mg/dL 70 - 99 09/30/2013 2Interpretive Data: Adult reference range values reflect the clinical guidelines of the [place] [employer]. [facility] HEMATOLOGY Basophils # 0.1 K/CMM 0.0 - 0.2 09/30/2013 [facility] HEMATOLOGY Lymphocytes 9.9 % 20.0 - 40.0 09/30/2013 [facility] HEMATOLOGY Segs 87.4 % 45.0 - 75.0 09/30/2013 [facility] HEMATOLOGY Basophils 0.4 % 0.0 - 1.0 09/30/2013 [facility] HEMATOLOGY Segs-Bands # 12.7 K/CMM 1.5 - 8.1 09/30/2013 [facility] Monocytes 1.8 % 2.0 - 12.0 09/30/2013 [facility] HEMATOLOGY Eosinophils 0.5 % 0.0 - 4.0 09/30/2013 [facility] HEMATOLOGY Eosinophils # 0.1 K/CMM 0.0 - 0.5 09/30/2013 [facility] Lymphocytes # 1.4 K/CMM 1.0 - 5.5 09/30/2013 [facility] Monocytes # 0.3 K/CMM 0.0 - 0.8 09/30/2013 [facility] MCHC 33.3 g/dL 32.0 - 36.0 09/30/2013 [facility] Platelet 244 K/CMM 133 - 450 09/30/2013 [facility] RDW 14.6 % 11.5 - 14.5 09/30/2013 [facility] MPV 8.7 fL 7.4 - 10.4 09/30/2013 [facility] WBC 14.6 K/CMM 3.7 - 10.4 09/30/2013 [facility] RBC 4.62 M/CMM 4.20 - 5.40 09/30/2013 [facility] MCH 26.4 pg 27.0 - 31.0 09/30/2013 [facility] MCV 79.2 fL 81.0 - 99.0 09/30/2013 [facility] Hct 36.6 % 36.0 - 48.0 09/30/2013 [facility] Hgb 12.2 g/dL 12.0 - 16.0 09/30/2013 [facility] Vital Signs Vital Sign Value Date Comments Source Weight 179 01/31/2018 [facility] Height 61 01/31/2018 [facility] Heart Rate 67 01/31/2018 [facility] Diastolic (mm Hg) 82 01/31/2018 [facility] Systolic (mm Hg) 142 01/31/2018 [facility] Weight 178 11/26/2017 [facility] Height 61 11/26/2017 [facility] Heart Rate 73 11/26/2017 [facility] Diastolic (mm Hg) 60 11/26/2017 [facility] Systolic (mm Hg) 100 11/26/2017 [facility] Weight 178 02/18/2017 [facility] Height 61 02/18/2017 [facility] Heart Rate 71 02/18/2017 [facility] Diastolic (mm Hg) 66 02/18/2017 [facility] Systolic (mm Hg) 122 02/18/2017 [facility] Weight 180 03/26/2016 [facility] Height 61 03/26/2016 [facility] Diastolic (mm Hg) 80 03/26/2016 [facility] Systolic (mm Hg) 126 03/26/2016 [facility] Weight 176 01/23/2016 [facility] Height 61 01/23/2016 [facility] Heart Rate 68 01/23/2016 [facility] Diastolic (mm Hg) 75 01/23/2016 [facility] Systolic (mm Hg) 135 01/23/2016 [facility] Weight 178 05/18/2015 [facility] Height 61 05/18/2015 [facility] Heart Rate 68 05/18/2015 [facility] Diastolic (mm Hg) 76 05/18/2015 [facility] Systolic (mm Hg) 136 05/18/2015 [facility] Temperature Oral (F) 98.1 F 10/01/2013 [facility] Height 154.94 cm 09/30/2013 [facility] Weight 80 09/30/2013 [facility] BMI Calculated 33.32 09/30/2013 [facility] Systolic (mm Hg) 164 09/30/2013 [facility] Diastolic (mm Hg) 76 09/30/2013 [facility] Respitory Rate 66 09/30/2013 [facility] Temperature Oral (F) 98.5 F 09/30/2013 [facility] Heart Rate 18 09/30/2013 [facility] Encounters Location Location Details Encounter Type Encounter Number Reason For Visit Attending Provider ADM Date DC Date Status Source [facility] follow up on labs [id number] 02/03/2013 02/03/2013 [facility] follow up on labs [id number] 02/03/2013 02/03/2013 [facility] follow up on labs [id number] 02/03/2013 02/03/2013 [facility] follow up on labs [id number] 02/03/2013 02/03/2013 [facility] Unknown [id number] 04/28/2013 04/28/2013 [facility] Unknown [id number] 04/28/2013 04/28/2013 [facility] Unknown [id number] 04/28/2013 04/28/2013 [facility] Unknown [id number] 04/28/2013 04/28/2013 [facility] 6 month f/u [id number] 07/31/2013 07/31/2013 [facility] 6 month f/u [id number] 07/31/2013 07/31/2013 [facility] 6 month f/u [id number] 07/31/2013 07/31/2013 [facility] 6 month f/u [id number] 07/31/2013 07/31/2013 [facility] intense stomach pain [id number] 09/30/2013 09/30/2013 [facility] intense stomach pain [id number] 09/30/2013 09/30/2013 [facility] intense stomach pain [id number] 09/30/2013 09/30/2013 [facility] intense stomach pain [id number] 09/30/2013 09/30/2013 [facility] [id number] Cat Liz 09/30/2013 10/01/2013 [facility] Unknown [id number] 10/01/2013 10/01/2013 [facility] Unknown [id number] 10/01/2013 10/01/2013 [facility] Unknown [id number] 10/01/2013 10/01/2013 [facility] Unknown [id number] 10/01/2013 10/01/2013 [facility] Follow-Up [id number] 10/05/2013 10/05/2013 [facility] Follow-Up [id number] 10/05/2013 10/05/2013 [facility] Follow-Up [id number] 10/05/2013 10/05/2013 [facility] Follow-Up [id number] 10/05/2013 10/05/2013 [facility] 3 MONTH FU [id number] 10/30/2013 10/30/2013 [facility] 3 MONTH FU [id number] 10/30/2013 10/30/2013 [facility] 3 MONTH FU [id number] 10/30/2013 10/30/2013 [facility] 3 MONTH FU [id number] 10/30/2013 10/30/2013 [facility] Unknown [id number] 11/17/2013 11/17/2013 [facility] Unknown [id number] 11/17/2013 11/17/2013 [facility] Unknown [id number] 11/17/2013 11/17/2013 [facility] Unknown [id number] 11/17/2013 11/17/2013 [facility] Unknown [id number] 11/23/2013 11/23/2013 [facility] Unknown [id number] 11/23/2013 11/23/2013 [facility] Unknown [id number] 11/23/2013 11/23/2013 [facility] Unknown [id number] 11/23/2013 11/23/2013 [facility] [place]- FLU [place]OT [id number] 12/10/2013 12/10/2013 [facility] [place]- [place] [id number] 12/10/2013 12/10/2013 [facility] [place] [id number] 12/10/2013 12/10/2013 [facility] [place] [id number] 12/10/2013 12/10/2013 [facility] Outpatient [id number] Alisha Reddy 12/23/2013 12/24/2013 [facility] [id number] 01/29/2014 01/29/2014 [facility] [id number] 01/29/2014 01/29/2014 [facility] [id number] 01/29/2014 01/29/2014 [facility] [id number] 01/29/2014 01/29/2014 [facility] Unknown [id number] 02/15/2014 02/15/2014 [facility] Unknown [id number] 02/15/2014 02/15/2014 [facility] Unknown [id number] 02/15/2014 02/15/2014 [facility] Unknown [id number] 02/15/2014 02/15/2014 [facility] FOLLOW UP ON ABNORMAL RESULTS [id number] 02/16/2014 02/16/2014 [facility] FOLLOW UP ON ABNORMAL RESULTS [id number] 02/16/2014 02/16/2014 [facility] FOLLOW UP ON ABNORMAL RESULTS [id number] 02/16/2014 02/16/2014 [facility] FOLLOW UP ON ABNORMAL RESULTS [id number] 02/16/2014 02/16/2014 [facility] Refill [id number] 11/08/2014 11/08/2014 [facility] Refill [id number] 11/08/2014 11/08/2014 [facility] Refill [id number] 11/08/2014 11/08/2014 [facility] Refill [id number] 11/08/2014 11/08/2014 [facility] Outpatient [id number] Alisha [facility] 01/05/2015 01/06/2015 [facility] E/KAMRAN [id number] 01/20/2015 01/20/2015 [facility] E/BRIT [id number] 01/20/2015 01/20/2015 [facility] E/[facility] [id number] 01/20/2015 01/20/2015 [facility] E/BRIT [id number] 01/20/2015 01/20/2015 [facility] Results [id number] 01/21/2015 01/21/2015 [facility] Results [id number] 01/21/2015 01/21/2015 [facility] Results [id number] 01/21/2015 01/21/2015 [facility] Results [id number] 01/21/2015 01/21/2015 [facility] 2 week follow up [id number] 02/03/2015 02/03/2015 [facility] 2 week follow up [id number] 02/03/2015 02/03/2015 [facility] 2 week follow up [id number] 02/03/2015 02/03/2015 [facility] 2 week follow up [id number] 02/03/2015 02/03/2015 [facility] Test results [id number] 02/04/2015 02/04/2015 [facility] Test results [id number] 02/04/2015 02/04/2015 [facility] Test results [id number] 02/04/2015 02/04/2015 [facility] Test results [id number] 02/04/2015 02/04/2015 [facility] Outpatient [id number] Alisha Reddy 02/17/2015 02/18/2015 [facility] follow up [id number] 02/25/2015 02/25/2015 [facility] follow up [id number] 02/25/2015 02/25/2015 [facility] follow up [id number] 02/25/2015 02/25/2015 [facility] follow up [id number] 02/25/2015 02/25/2015 [facility] Unknown [id number] 02/28/2015 02/28/2015 [facility] Unknown [id number] 02/28/2015 02/28/2015 [facility] Unknown [id number] 02/28/2015 02/28/2015 [facility] Unknown [id number] 02/28/2015 02/28/2015 [facility] OP Therapy Patients [id number] Alisha Reddy 03/15/2015 04/14/2015 [facility] SORE THROAT [id number] 03/21/2015 03/21/2015 [facility] SORE THROAT [id number] 03/21/2015 03/21/2015 [facility] SORE THROAT [id number] 03/21/2015 03/21/2015 [facility] SORE THROAT [id number] 03/21/2015 03/21/2015 [facility] OP Therapy Patients [id number] Alisha Reddy 04/18/2015 05/18/2015 [facility] Back pain. [id number] 05/18/2015 05/18/2015 [facility] Back pain. [id number] 05/18/2015 05/18/2015 [facility] Back pain. [id number] 05/18/2015 05/18/2015 [facility] Back pain. [id number] 05/18/2015 05/18/2015 [facility] Needs call back from Medical Staff [id number] 06/27/2015 06/27/2015 [facility] Needs call back from Medical Staff [id number] 06/27/2015 06/27/2015 [facility] Needs call back from Medical Staff [id number] 06/27/2015 06/27/2015 [facility] WWE [id number] 01/23/2016 01/23/2016 [facility] WWE [id number] 01/23/2016 01/23/2016 [facility] Outpatient [id number] Alisha Barry 02/21/2016 02/22/2016 [facility] ab pain/UTI [id number] 03/26/2016 03/26/2016 [facility] Outpatient [id number] Alisha Reddy 03/26/2017 03/27/2017 [facility] Departed Emergency Room [id number] LIVIA MERCEDES MD 11/22/2017 11/22/2017 [facility] Outpatient [id number] Alisha Brary 05/06/2018 05/07/2018 [facility] Procedures Procedure Code Date Perfomer Comments Source
--- OUTSIDE RECORDS SUMMARY | 2018-08-17 15:18 | XMS REPORT ---
Author Author Alisha Mendes [facility] eClinicalWorks Address Unknown Phone Unavailable Care Team Providers Care Bale Coverer Name Role Phone Alisha Mendes CP Unavailable Allergies No Known Allergies Problems Problem Type Condition Code Onset Dates Condition Status Assessment Coronary artery disease involving [place] coronary artery of [place] heart, angina presence unspecified I25.10 Active Problem GERD (gastroesophageal reflux disease) K21.9 Active Problem HTN (hypertension) I10 Active Problem BMI 33.0-33.9,adult Z68.33 Active Problem Obesity (BMI 30.0-34.9) E66.9 Active Problem BMI 34.0-34.9,adult Z68.34 Active Problem Prediabetes R73.09 Active Problem HLD (hyperlipidemia) E78.5 Active Problem Coronary artery disease involving [place] coronary artery of [place] heart, angina presence unspecified I25.10 Active Problem Microhematuria R31.2 Active Medications Medication Code System Code Instructions Start Date End Date Status Dosage Plavix [facility] 49751427571 75 mg Orally Once a day Active 1 tablet Results No Known Results Summary Purpose eClinicalWorks Submission
--- OUTSIDE RECORDS SUMMARY | 2018-08-17 15:18 | XMS REPORT ---
Author Author Gisselle Church Organization eClinicalWorks Address Unknown Phone Unavailable Care Team Providers Care Shipwright Supervisor Name Role Phone Gisselle Church CP Unavailable Allergies No Known Allergies Problems Problem Type Condition Code Onset Dates Condition Status Assessment Coronary artery disease involving [place] coronary artery of [place] heart, angina presence unspecified I25.10 Active Assessment HTN (hypertension) I10 Active Assessment HLD (hyperlipidemia) E78.5 Active Problem Coronary artery disease involving [place] coronary artery of [place] heart, angina presence unspecified I25.10 Active Problem Microhematuria R31.2 Active Problem Stress at home F43.9 Active Problem GERD (gastroesophageal reflux disease) K21.9 Active Problem HTN (hypertension) I10 Active Problem Prediabetes R73.09 Active Problem HLD (hyperlipidemia) E78.5 Active Medications Medication Code System Code Instructions Start Date End Date Status Dosage Atorvastatin Calcium [facility] 61011983468 40 mg Orally Once a day July 31, 2013 Active 1 tablet Hyzaar [facility] 91193939598 50-12.5 MG Orally Once a day Active 1 tablet Plavix [facility] 27885259982 75 mg Orally Once a day Active 1 tablet Atenolol [facility] 59996150074 50 mg Orally Once a day Active 1 tablet Results No Known Results Summary Purpose eClinicalWorks Submission
--- OUTSIDE RECORDS SUMMARY | 2018-08-17 15:18 | XMS REPORT ---
Author Author Gisselle Church [facility] eClinicalWorks Address Unknown Phone Unavailable Care Team Providers Care Beverage Host Name Role Phone Gisselle Church CP Unavailable Allergies, Adverse Reactions, Alerts Substance Reaction Event Type Latex Gloves Info Not Available Drug Allergy Codeine Sulfate Info Not Available Drug Allergy shrimp Info Not Available Non Drug Allergy Problems Problem Type Condition Code Onset Dates Condition Status Assessment HTN (hypertension) I10 Active Assessment Encntr for general adult medical exam w/o abnormal findings Z00.00 Active Problem Coronary artery disease involving [place] coronary artery of [place] heart, angina presence unspecified I25.10 Active Problem Microhematuria R31.2 Active Problem Stress at home F43.9 Active Problem GERD (gastroesophageal reflux disease) K21.9 Active Problem HTN (hypertension) I10 Active Problem Prediabetes R73.09 Active Problem HLD (hyperlipidemia) E78.5 Active Assessment Coronary artery disease involving [place] coronary artery of [place] heart, angina presence unspecified I25.10 Active Assessment Prediabetes R73.09 Active Assessment GERD (gastroesophageal reflux disease) K21.9 Active Assessment Microhematuria R31.2 Active Assessment HLD (hyperlipidemia) E78.5 Active Medications Medication Code System Code Instructions Start Date End Date Status Dosage Aspirin [facility] 88504194058 81 MG Orally Once a day Active 1 tablet Hyzaar [facility] 16547158871 50-12.5 MG Orally Once a day Active 1 tablet HydrOXYzine HCl [facility] 18647817354 25 MG Orally every 8 hrs Active 1 tablet as needed Atorvastatin Calcium [facility] 33268600310 20 mg Orally Once a day Active 1 tablet Plavix ND 90515670171 75 mg Orally Once a day Active 1 tablet Atorvastatin Calcium [facility] 77370097032 40 mg Orally Once a day July 31, 2013 Active 1 tablet Atenolol ND 30305821979 50 mg Orally Once a day Active 1 tablet Omeprazole ND 19916303660 40 mg Orally Once a day Active 1 capsule Vital Signs Date/Time: Jan 31, 2018 BMI 33.82 Index Weight 179 lbs Height 61 in Cardiac Monitoring Heart Rate 67 /min Blood Pressure Diastolic 82 mm Hg Blood Pressure Systolic 142 mm Hg Results No Known Results Summary Purpose eClinicalWorks Submission
--- OUTSIDE RECORDS SUMMARY | 2018-08-17 15:18 | XMS REPORT | Summary of Care ---
Author Author [facility] Organization [facility] Address Unknown Phone Unavailable Encounter HQ Sima_zaid(FIN) [id number] Date(s): 05/06/18 - 05/06/18 [facility] [address] [place] [address]- Encounter Diagnosis Encounter for screening mammogram for malignant neoplasm of breast (Final) - Discharge Disposition: Home or Self Care Attending Physician: Alisha Reddy DO Referring Physician: Alisha Reddy DO Vital Signs No data available for this section Problem List Condition Effective Dates Status Health Status Informant Abdominal Active pain(Confirmed) CAD (coronary artery Resolved disease)(Confirmed) Coronary artery Active disease(Confirmed) HTN - Active Hypertension(Confirm ed) Hyperlipidemia(Confi Active [...]
--- OUTSIDE RECORDS SUMMARY | 2018-08-17 15:18 | XMS REPORT | Summary of Care ---
Author Author [facility] Organization [facility] Address Unknown Phone Unavailable Encounter HQ Mariah(BONNY) [id number] Date(s): 02/21/16 - 02/21/16 [facility] [address] [place] [address]- [phone] Final: Encounter for screening mammogram for malignant neoplasm of breast Discharge Disposition: Home or Self Care Attending [...]
--- OUTSIDE RECORDS SUMMARY | 2018-08-17 15:18 | XMS REPORT | Summary of Care ---
Author Author [facility] Address Unknown Phone Unavailable Encounter HQ Encntr_zaid(FIN) [id number] Date(s): 03/15/15 - 04/13/15 [facility] Discharge Disposition: Home Attending Physician: Alisha [...]
--- OUTSIDE RECORDS SUMMARY | 2018-08-17 15:18 | XMS REPORT | Summary of Care ---
Author Author [facility] Organization [facility] Address Unknown Phone Unavailable Encounter HQ Sima_zaid(BONNY) [id number] Date(s): 02/17/15 - 02/17/15 [facility] [address] [place] [address]- [phone] Discharge Disposition: Home Attending Physician: Alisha Reddy [...]
--- OUTSIDE RECORDS SUMMARY | 2018-08-17 15:18 | XMS REPORT ---
Author Author Alisha Mendes [facility] eClinicalWorks Address Unknown Phone Unavailable Care Team Providers Care Production Proofreader Name Role Phone Alisha Mendes CP Unavailable Allergies, Adverse Reactions, Alerts Substance Reaction Event Type Latex Gloves Info Not Available Drug Allergy Codeine Sulfate Info Not Available Drug Allergy shrimp Info Not Available Non Drug Allergy Problems Problem Type Condition Code Onset Dates Condition Status Assessment Routine general medical examination at a health care facility Z00.00 Active Problem GERD (gastroesophageal reflux disease) K21.9 Active Problem HTN (hypertension) I10 Active Problem BMI 33.0-33.9,adult Z68.33 Active Problem Obesity (BMI 30.0-34.9) E66.9 Active Problem BMI 34.0-34.9,adult Z68.34 Active Problem Prediabetes R73.09 Active Problem HLD (hyperlipidemia) E78.5 Active Problem Coronary artery disease involving [place] coronary artery of [place] heart, angina presence unspecified I25.10 Active Problem Microhematuria R31.2 Active Assessment Coronary artery disease involving [place] coronary artery of [place] heart, angina presence unspecified I25.10 Active Assessment HLD (hyperlipidemia) E78.5 Active Assessment HTN (hypertension) I10 Active Assessment Prediabetes R73.09 Active Assessment Asymptomatic menopausal state Z78.0 Active Assessment GERD (gastroesophageal reflux disease) K21.9 Active Assessment Screening for malignant neoplasm of breast Z12.39 Active Medications Medication Code System Code Instructions Start Date End Date Status Dosage Hyzaar [facility] 04286485338 50-12.5 MG Orally Once a day Active 1 tablet Atenolol ND 03655511324 50 mg Orally Once a day Active 1 tablet Atorvastatin Calcium ND 61996442690 40 mg Orally Once a day July 31, 2013 Active 1 tablet Aspirin [facility] 21727264886 81 MG Orally Once a day Active 1 tablet Plavix ND 90996453826 75 MG Orally Once a day Active 1 tablet Vital Signs Date/Time: Feb 18, 2017 BMI 33.63 Index Weight 178 lbs Height 61 in Cardiac Monitoring Heart Rate 71 /min Blood Pressure Diastolic 66 mm Hg Blood Pressure Systolic 122 mm Hg Results No Known Results Summary Purpose eClinicalWorks Submission
--- OUTSIDE RECORDS SUMMARY | 2018-08-17 15:18 | XMS REPORT | Summary of Care ---
Author Organization Unknown Address Unknown Phone Unavailable Encounter HQ Encntr_alitim(FIN) [id number] Date(s): 12/23/13 - 12/23/13 [facility] [address] [place], [place] [id number] [place] [address] Discharge Disposition: Home Physician Attending: Alisha Reddy DO Physician_Referring: Alisha Reddy DO Reason for Visit SCREENING Problem List Condition Effective Dates Status Health [...] Medications No data available for this section Medications Administered During Your Visit No data available for this section Immunizations No data available for this section
--- OUTSIDE RECORDS SUMMARY | 2018-08-17 15:18 | XMS REPORT ---
Author Author Alisha Mendes [facility] eClinicalWorks Address Unknown Phone Unavailable Care Team Providers Care Fish Bait Picker Name Role Phone Alisha Mendes Unavailable Encounters Encounter Location Date Unknown [facility] October 01, 2013 intense stomach pain [facility] September 30, 2013 Follow-Up [facility] October 05, 2013 3 MONTH FU [facility] Oct 30, 2013 follow up on labs [facility] Feb 03, 2013 Unknown [facility] Apr 28, 2013 6 month f/u [facility] July 31, 2013 [place]- FLU SHOT [facility] Dec 10, 2013 SORE THROAT [facility] Mar 21, 2015 Unknown [facility] Feb 28, 2015 Unknown [facility] Nov 17, 2013 Unknown [facility] Nov 23, 2013 2 week follow up [facility] Feb 03, 2015 Test results [facility] Feb 04, 2015 WWE/FBW [facility] Jan 20, 2015 Results [facility] Jan 21, 2015 Back pain. [facility] May 18, 2015 FOLLOW UP ON ABNORMAL RESULTS [facility] Feb 16, 2014 Needs call back from Medical Staff [facility] June 27, 2015 Refill [facility] Nov 08, 2014 WWE fbw [facility] Jan 29, 2014 Unknown [facility] Feb 14, 2014 follow up [facility] Feb 25, 2015 Problems Problem Type Condition ICD-9 Code Onset Dates Condition Status Problem Prediabetes R73.09 Active Problem Postmenopausal Z78.0 Active Problem Leukocytosis D72.829 Active Problem Coronary artery disease involving [place] coronary artery of [place] heart, angina presence unspecified I25.10 Active Problem HLD (hyperlipidemia) E78.5 Active Problem GERD (gastroesophageal reflux disease) K21.9 Active Problem Microhematuria R31.2 Active Problem HTN (hypertension) I10 Active Medications Medication Code System Code Instructions Start Date End Date Status Dosage Sandra LEACH [address]-66 10 mg Orally Once a day June 27, 2015 Active 1 tablet at bedtime as needed Social History Social History Element Qualifiers Date Reported Fall Risk: . none in the past year May 18, 2015 Flu Vaccine: . 2014May 18, 2015 Last Colonoscopy: . 2012, 1 polyp May 18, 2015 Ethnicity . Status , Is ukrainian your primary language? Yes May 18, 2015 Depression Screening: . 07/2013May 18, 2015 children . 2 May 18, 2015 Tobacco Use: . Are you a: never smoker May 18, 2015 Use of recreational / street drugs? . Answer: No May 18, 2015 Marital Status: . Prabhakar Beltrán May 18, 2015 Do you drink alcohol? . Status: No May 18, 2015 Occupation: . [employer] May 18, 2015 Summary Purpose eClinicalWorks Submission
--- OUTSIDE RECORDS SUMMARY | 2018-08-17 15:19 | XMS REPORT ---
Author Author Jean Rider Organization eClinicalWorks Address Unknown Phone Unavailable Care Team Providers Care Private Detective Name Role Phone Jean Rider CP Unavailable Allergies, Adverse Reactions, Alerts Substance Reaction Event Type Latex Gloves Info Not Available Drug Allergy Codeine Sulfate Info Not Available Drug Allergy shrimp Info Not Available Non Drug Allergy Encounters Encounter Location Date [place]- FLU SHOT [facility] Dec 10, 2013 2 week follow up [facility] Feb 03, 2015 Test results [facility] Feb 04, 2015 WWE/FBW [facility] Jan 20, 2015 Results [facility] Jan 21, 2015 FOLLOW UP ON ABNORMAL RESULTS [facility] Feb 16, 2014 Refill [facility] Nov 08, 2014 WWE fbw [facility] Jan 29, 2014 Unknown [facility] Feb 14, 2014 follow up [facility] Feb 25, 2015 Unknown [facility] October 01, 2013 intense stomach pain [facility] September 30, 2013 Follow-Up [facility] October 05, 2013 3 MONTH FU [facility] Oct 30, 2013 follow up on labs [facility] Feb 03, 2013 Unknown [facility] Apr 28, 2013 6 month f/u [facility] July 31, 2013 SORE THROAT [facility] Mar 21, 2015 Unknown [facility] Feb 28, 2015 Unknown [facility] Nov 17, 2013 Unknown [facility] Nov 23, 2013 Back pain. [facility] May 18, 2015 Needs call back from Medical Staff [facility] June 27, 2015 WWE [facility] Jan 23, 2016 ab pain/UTI [facility] Mar 26, 2016 Problems Problem Type Condition ICD-9 Code Onset Dates Condition Status Assessment Abdominal pain, unspecified location R10.9 Active Problem GERD (gastroesophageal reflux disease) K21.9 Active Problem Prediabetes R73.09 Active Problem BMI 33.0-33.9,adult Z68.33 Active Problem Obesity (BMI 30.0-34.9) E66.9 Active Problem BMI 34.0-34.9,adult Z68.34 Active Problem HTN (hypertension) I10 Active Problem HLD (hyperlipidemia) E78.5 Active Problem Coronary artery disease involving [place] coronary artery of [place] heart, angina presence unspecified I25.10 Active Problem Microhematuria R31.2 Active Assessment BMI 34.0-34.9,adult Z68.34 Active Assessment Coronary artery disease involving [place] coronary artery of [place] heart, angina presence unspecified I25.10 Active Assessment Acute cystitis with hematuria N30.01 Active Medications Medication Code System Code Instructions Start Date End Date Status Dosage Atenolol [facility] [address]-47 50 MG Orally Once a day Active 1 tablet Atorvastatin Calcium [facility] [address]-85 40 MG Orally Once a day July 31, 2013 Active 1 tablet Hyzaar [facility] [address]-68 50-12.5 MG Orally Once a day Active 1 tablet Aspirin [facility] [address] 81 MG Orally Once a day Active 1 tablet Plavix [facility] [address]-75 75 MG Orally Once a day Active 1 tablet Cipro [facility] [address]-86 250 MG Orally twice a day (bid) Mar 26, 2016 Mar 29, 2016 Active 1 tablet Social History Social History Element Qualifiers Date Reported Fall Risk: . none in the past year Mar 26, 2016 Last Colonoscopy: . 2012, 1 polyp Mar 26, 2016 Ethnicity . Status , Is kiswahili your primary language? Yes Mar 26, 2016 children . 2 Mar 26, 2016 Tobacco Use: . Are you a: never smoker Mar 26, 2016 Use of recreational / street drugs? . Answer: No Mar 26, 2016 Marital Status: . Prabhakar Jerel Mar 26, 2016 Do you drink alcohol? . Status: No Mar 26, 2016 Occupation: . RETIRED - Work Director Of [employer] Mar 26, 2016 Family history Qualifier Description Comment Date Reported Maternal Grandmother Comment not available Mar 26, 2016 Paternal Grandmother Comment not available Mar 26, 2016 Siblings Comment not available Mar 26, 2016 Maternal Grandfather Comment not available Mar 26, 2016 Children Comment not available Mar 26, 2016 Father heart disease, heart attack Mar 26, 2016 Paternal Grandfather Comment not available Mar 26, 2016 Mother hypertension Mar 26, 2016 Other: Comment not available Mar 26, 2016 Vital Signs Date/Time: Mar 26, 2016 Weight 180 lbs Height 61 in Blood Pressure Diastolic 80 mm Hg Blood Pressure Systolic 126 mm Hg Summary Purpose eClinicalWorks Submission
--- OUTSIDE RECORDS SUMMARY | 2018-08-17 15:19 | XMS REPORT ---
Author Author Alisha Mendes [facility] eClinicalWorks Address Unknown Phone Unavailable Care Team Providers Care Risk Specialist Name Role Phone Armas Alisha Gagnon CP Unavailable Allergies, Adverse Reactions, Alerts Substance Reaction Event Type Latex Gloves Info Not Available Drug Allergy Codeine Sulfate Info Not Available Drug Allergy shrimp Info Not Available Non Drug Allergy Encounters Encounter Location Date Unknown [facility] October 01, 2013 intense stomach pain [facility] September 30, 2013 Follow-Up [facility] October 05, 2013 3 MONTH FU [facility] Oct 30, 2013 follow up on labs [facility] Feb 03, 2013 Unknown [facility] Apr 28, 2013 6 month f/u [facility] July 31, 2013 NV- FLU SHOT [facility] Dec 10, 2013 SORE THROAT [facility] Mar 21, 2015 Unknown [facility] Feb 28, 2015 Unknown [facility] Nov 17, 2013 Unknown [facility] Nov 23, 2013 2 week follow up [facility] Feb 03, 2015 Test results [facility] Feb 04, 2015 WWE/FBW [facility] Jan 20, 2015 Results [facility] Jan 21, 2015 Back pain. [facility] May 18, 2015 FOLLOW UP ON ABNORMAL RESULTS [facility] Feb 16, 2014 Needs call back from Medical Staff [facility] June 27, 2015 Refill [facility] Nov 08, 2014 WWE [facility] Jan 23, 2016 WWE fbw [facility] Jan 29, 2014 Unknown [facility] Feb 14, 2014 follow up [facility] Feb 25, 2015 Problems Problem Type Condition ICD-9 Code Onset Dates Condition Status Problem Prediabetes R73.09 Active Problem HLD (hyperlipidemia) E78.5 Active Problem GERD (gastroesophageal reflux disease) K21.9 Active Problem Obesity (BMI 30.0-34.9) E66.9 Active Assessment Encounter for screening mammogram for malignant neoplasm of breast Z12.31 Active Problem Coronary artery disease involving [place] coronary artery of [place] heart, angina presence unspecified I25.10 Active Assessment Needs flu shot Z23 Active Assessment BMI 33.0-33.9,adult Z68.33 Active Problem BMI 33.0-33.9,adult Z68.33 Active Problem Microhematuria R31.2 Active Problem HTN (hypertension) I10 Active Problem Postmenopausal Z78.0 Active Problem Leukocytosis D72.829 Active Assessment Leukocytosis D72.829 Active Assessment Postmenopausal Z78.0 Active Assessment Special screening for malignant neoplasms, colon Z12.11 Active Assessment Microhematuria R31.2 Active Assessment GERD (gastroesophageal reflux disease) K21.9 Active Assessment HLD (hyperlipidemia) E78.5 Active Assessment Coronary artery disease involving [place] coronary artery of [place] heart, angina presence unspecified I25.10 Active Assessment HTN (hypertension) I10 Active Assessment Obesity (BMI 30.0-34.9) E66.9 Active Assessment Prediabetes R73.09 Active Assessment Encounter for routine gynecological examination Z01.419 Active Medications Medication Code System Code Instructions Start Date End Date Status Dosage Aspirin [facility] 13054-99501 81 MG Orally Once a day Active 1 tablet Atorvastatin Calcium [facility] [address]-97 40 MG Orally Once a day July 31, 2013 Active 1 tablet Atenolol [facility] [address]-27 50 MG Orally Once a day Active 1 tablet Ambien [facility] [address]-92 10 mg Orally Once a day June 27, 2015 Inactive 1 tablet at bedtime as needed Plavix [facility] [address]-22 75 MG Orally Once a day Active 1 tablet Aciphex [facility] [address]-15 20 mg Orally Once a day Inactive 1 tablet Hyzaar [facility] [address]-16 50-12.5 MG Orally Once a day Active 1 tablet Social History Social History Element Qualifiers Date Reported Flu Vaccine: . 2014Jan 23, 2016 Last Colonoscopy: . 2012, 1 polyp Jan 23, 2016 Ethnicity . Status , Is setswana your primary language? Yes Jan 23, 2016 Fall Risk: . none in the past year Jan 23, 2016 children . 2 Jan 23, 2016 Tobacco Use: . Are you a: never smoker Jan 23, 2016 Use of recreational / street drugs? . Answer: No Jan 23, 2016 Marital Status: . Prabhakar Beltrán Jan 23, 2016 Do you drink alcohol? . 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 [employer] Jan 23, 2016 Family history Qualifier Description Comment Date Reported Maternal Grandmother Comment not available Jan 23, 2016 Paternal Grandmother Comment not available Jan 23, 2016 Siblings Comment not available Jan 23, 2016 Maternal Grandfather Comment not available Jan 23, 2016 Children Comment not available Jan 23, 2016 Father heart disease, heart attack Jan 23, 2016 Paternal Grandfather Comment not available Jan 23, 2016 Mother hypertension Jan 23, 2016 Other: Comment not available Jan 23, 2016 Vital Signs Date/Time: Jan 23, 2016 Weight 176 lbs Height 61 in Cardiac Monitoring Heart Rate 68 /min Blood Pressure Diastolic 75 mm Hg Blood Pressure Systolic 135 mm Hg Results Hemoglobin A1c Immunizations Vaccine Administration Date FLUZONE HD [address] [place] [address] Jan 23, 2016 Summary Purpose eClinicalWorks Submission
--- OUTSIDE RECORDS SUMMARY | 2018-08-17 15:19 | XMS REPORT ---
Author [facility] Address Unknown Phone Unavailable Care Team Providers Care Senior Formulation Scientist Name Role Phone Dewayne MERCEDES Unavailable Unavailable Problems This patient has no known problems. Allergies, Adverse Reactions, Alerts This patient has no known allergies or adverse reactions. Medications This patient has no known medications. Results Test Description Test Time Test Comments Text Results Atomic Results Result Comments CT BRAIN WO-[facility] 2017-11-22 12:57:00 [place] [address] Patient Name: KERI PEÑA MR #: [id number] : 1950 Age/Sex: 67/F Req #: [id number] Adm Physician: Ordered by: LIVIA MERCEDES MD Report #: [id number] Location: [facility] Room/Bed: Procedure: [id number] [facility]OP[facility] Exam Date: 11/22/17 Exam Time: 1234 REPORT STATUS: Signed History: Headaches Comparison studies: None Technique: Axial images were obtained from the skull base to the vertex. Coronal and sagittal reconstructions obtained from the axial data. Dose modulation, iterative reconstruction, and/or weight based adjustment of the mA/kV was utilized to reduce the radiation dose to as low as reasonably achievable. Findings: Scalp/skull: No abnormalities. No fractures, blastic or lytic lesions. Extra-axial spaces: No masses. No fluid collections. Brain sulci: Appropriate for age. Ventricles: Normal in size and configuration. No hydrocephalus. Parenchyma: No abnormal densities. No masses, hemorrhage, acute or chronic cortical vascular insults. Sellar/suprasellar region: Empty sella configuration Craniocervical junction: Patent foramen ma gnum. No Chiari one malformation. Atherosclerotic calcifications of the carotid siphons IMPRESSION: No acute abnormalities . Signed by: DR Pineda Collazo M.D. on 11/22/2017 12:59 PM Dictated By: PINEDA TEMPLE MD [id number] Transcribed By: JOE on 11/22/17 1257 COPY TO: LIVIA MERCEDES MD
[2018-08-17 16:29] VITALS: BP 158/78
== END 2018-08-17 16:25 | disposition home or self-care (01) ==
LOC: FSED 15:14
DX: R05 Cough (principal); J20.9 Acute bronchitis, unspecified; J00 Acute nasopharyngitis [common cold]
CPT/HCPCS: 99282